=== PATIENT | male | born 1955 | race Caucasian/White ===

== ENCOUNTER 2021-02-20 07:12 | Emergency (ER) | payer OTHER ==
[2021-02-20] MEDS ORDERED: HYDROCODONE/APAP 10/325 TAB ONE (08:24)
[2021-02-20] MEDS ORDERED: ONDANSETRON 4 MG (ODT) TAB ONE (08:24)
[2021-02-20] MEDS ORDERED: FAMOTIDINE 20 MG TAB ONE (08:25)
[2021-02-20] MEDS ORDERED: TETANUS & DIPHTHERIA TOX,ADULT 0.5 ML VIAL ONE (08:25)
--- NOTE | 2021-02-20 10:11 | ER ---
Nurse's Notes [facility] Name: Rony Mortensen Jr Age: 65 yrs Sex: Male : 1955 Arrival Date: 02/20/2021 Time: 07:16 Bed 12 Private MD: Diagnosis: Fracture of one rib, left side-Rib 5;Chest pain on breathing;Chest pain, unspecified Presentation: 02/20 07:40 Chief complaint: Patient states: tripped over a piece of concrete yesterday and landed iw on his left side, has pain to left ribs. Care prior to arrival: None. 07:40 Acuity: CAMRYN 4 iw 07:40 Method Of Arrival: Ambulatory iw 07:40 Coronavirus screen: At this time, the client does not indicate any symptoms associated iw with coronavirus-19. Ebola Screen: Patient negative for fever greater than or equal to 101.5 degrees Fahrenheit, and additional compatible Ebola Virus Disease symptoms Patient denies exposure to infectious person. Patient denies travel to an Ebola-affected area in the 21 days before illness onset. No symptoms or risks identified at this time. Initial Sepsis Screen: Does the patient meet any 2 criteria? No. Patient's initial sepsis screen is negative. Does the patient have a suspected source of infection? No. Patient's initial sepsis screen is negative. Risk Assessment: Do you want to hurt yourself or someone else? Patient reports no desire to harm self or others. Onset of symptoms was February 19, 2021. Historical: - Allergies: 07:41 No Known Allergies; iw - Home Meds: 07:41 suboxone [Active]; Pepcid Oral [Active]; iw - PMHx: 07:41 Hypertensive disorder; Hypercholesterolemia; Chronic pain; iw - Immunization history:: Client reports receiving the 2nd dose of the Covid vaccine. - Social history:: Smoking status: . Screenin:30 Abuse screen: Denies threats or abuse. Denies injuries from another. Nutritional iw screening: No deficits noted. Tuberculosis screening: No symptoms or risk factors identified. Fall Risk None identified. Assessment: 08:30 General: Appears in no apparent distress. Behavior is calm, cooperative. Pain: iw Complains of pain in chest and left lateral anterior chest. Neuro: Level of Consciousness is awake, alert, obeys commands, Oriented to person, place, time, situation. Vital Signs: 07:40 BP 147 / 96; Pulse 92; Resp 18; Temp 98.5; Pulse Ox 98% on R/A; Weight 97.52 kg; Height iw 5 ft. 11 in. (180.34 cm); 07:40 Body Mass Index 29.99 (97.52 kg, 180.34 cm) iw ED Course: 07:16 Patient arrived in ED. mr 07:40 Triage completed. iw 07:44 Regine Trivedi, RN is Primary Nurse. iw 07:50 Jairon Dawson MD is Attending Physician. kdr 08:30 Patient has correct armband on for positive identification. iw 09:50 CXR XRAY In Process Unspecified. EDMS 09:50 Ribs Left XRAY In Process Unspecified. EDMS 10:30 No provider procedures requiring assistance completed. iw 10:30 Patient did not have IV access during this emergency room visit. iw Administered Medications: 08:29 Drug: [place] (HYDROcodone-acetaminophen) 10 mg-325 mg 1 tabs Route: PO; iw 08:40 Follow up: Response: No adverse reaction iw 08:29 Drug: Zofran (Ondansetron) 4 mg Route: PO; iw 08:40 Follow up: Response: No adverse reaction iw 08:29 Drug: Pepcid (famotidine) 20 mg Route: PO; iw 08:40 Follow up: Response: No adverse reaction iw 08:29 Drug: Tetanus-Diphtheria Toxoid Adult 0.5 ml {Financial Aid Coordinator: [employer]. Exp: iw 06/18/2022. Lot #: [id number]. } Route: IM; Site: right deltoid; 08:40 Follow up: Response: No adverse reaction iw Outcome: 10:10 Discharge ordered by . kdr 10:30 Discharged to home ambulatory. iw 10:30 Condition: good 10:31 Patient left the ED. jh5 Signatures: Dispatcher [employer] EDMS Jairon Dawson MD MD [facility] [place] Regine Trivedi, RN DORA Kenya Chavez RN RN 5 Corrections: (The following items were deleted from the chart) 12:24 12:00 No provider procedures requiring assistance completed. iw iw
--- NOTE | 2021-02-20 10:11 | EDPHYS ---
[facility] Name: Rony Mortensen Jr Age: 65 yrs Sex: Male : 1955 Arrival Date: 02/20/2021 Time: 07:16 Bed 12 Private MD: ED Physician Jairon Dawson HPI: 02/20 08:04 This 65 yrs old Male presents to ER via Ambulatory with complaints of Fall Injury, Rib kdr Pain. 08:04 Details of fall: The patient fell from an upright position, while walking. Onset: The kdr symptoms/episode began/occurred suddenly, yesterday. Associated injuries: The patient sustained injury to the chest, specifically the left lateral anterior chest. Severity of symptoms: At their worst the symptoms were mild, moderate, just prior to arrival, in the emergency department the symptoms are unchanged. The patient has not experienced similar symptoms in the past. The patient has not recently seen a physician. States he was walking across his yard yesterday when he fell on his left side. He immediately had left chest wall pain. He also has an abrasion on his elbow. He did not hit his head and there was no loss of consciousness. Historical: - Allergies: 07:41 No Known Allergies; iw - Home Meds: 07:41 suboxone [Active]; Pepcid Oral [Active]; iw - PMHx: 07:41 Hypertensive disorder; Hypercholesterolemia; Chronic pain; iw - Immunization history:: Client reports receiving the 2nd dose of the Covid vaccine. - Social history:: Smoking status: . ROS: 08:04 Constitutional: Negative for fever, chills, and weight loss, Eyes: Negative for injury, kdr pain, redness, and discharge, ENT: Negative for injury, pain, and discharge, Neck: Negative for injury, pain, and swelling, Respiratory: Negative for shortness of breath, cough, wheezing, and pleuritic chest pain, Abdomen/GI: Negative for abdominal pain, nausea, vomiting, diarrhea, and constipation, Back: Negative for injury and pain, : Negative for injury, bleeding, discharge, and swelling, MS/Extremity: Negative for injury and deformity, Neuro: Negative for headache, weakness, numbness, tingling, and seizure activity. Psych: Negative for depression, anxiety, suicide ideation, homicidal ideation, and hallucinations, Allergy/Immunology: Negative for hives, rash, and allergies, Endocrine: Negative for neck swelling, polydipsia, polyuria, polyphagia, and marked weight changes, Hematologic/Lymphatic: Negative for swollen nodes, abnormal bleeding, and unusual bruising. 08:04 Cardiovascular: Positive for chest pain, with cough, with movement, of the left lateral anterior chest, Negative for edema, orthopnea, palpitations, paroxysmal nocturnal dyspnea. Exam: 08:04 Constitutional: This is a well developed, well nourished patient who is awake, alert, kdr and in no acute distress. Head/Face: Normocephalic, atraumatic. Eyes: Pupils equal round and reactive to light, extra-ocular motions intact. Lids and lashes normal. Conjunctiva and sclera are non-icteric and not injected. Cornea within normal limits. Periorbital areas with no swelling, redness, or edema. Neck: Trachea midline, no thyromegaly or masses palpated, and no cervical lymphadenopathy. Supple, full range of motion without nuchal rigidity, or vertebral point tenderness. No Meningismus. Cardiovascular: Regular rate and rhythm with a normal S1 and S2. No gallops, murmurs, or rubs. Normal PMI, no JVD. No pulse deficits. Respiratory: Lungs have equal breath sounds bilaterally, clear to auscultation and percussion. No rales, rhonchi or wheezes noted. No increased work of breathing, no retractions or nasal flaring. Abdomen/GI: Soft, non-tender, with normal bowel sounds. No distension or tympany. No guarding or rebound. No evidence of tenderness throughout. Back: No spinal tenderness. No costovertebral tenderness. Full range of motion. Skin: Warm, dry with normal turgor. Normal color with no rashes, no lesions, and no evidence of cellulitis. MS/ Extremity: Pulses equal, no cyanosis. Neurovascular intact. Full, normal range of motion. Neuro: Awake and alert, GCS 15, oriented to person, place, time, and situation. Cranial nerves II-XII grossly intact. Motor strength 5/5 in all extremities. Sensory grossly intact. Cerebellar exam normal. Normal gait. Psych: Awake, alert, with orientation to person, place and time. Behavior, mood, and affect are within normal limits. 08:04 Abdomen/GI: No left upper quadrant pain on deep palpation. Vital Signs: 07:40 BP 147 / 96; Pulse 92; Resp 18; Temp 98.5; Pulse Ox 98% on R/A; Weight 97.52 kg; Height iw 5 ft. 11 in. (180.34 cm); 07:40 Body Mass Index 29.99 (97.52 kg, 180.34 cm) iw MDM: 10:10 Patient medically screened. kdr 13:23 Data reviewed: vital signs, nurses notes, lab test result(s), radiologic studies. kdr Counseling: I had a detailed discussion with the patient and/or guardian regarding: the historical points, exam findings, and any diagnostic results supporting the discharge/admit diagnosis, radiology results, the need for outpatient follow up. 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 Exp: 06/18/2022. Lot #: [id number]. } Route: IM; Site: right deltoid; 08:40 Follow up: Response: No adverse reaction iw Disposition Summary: 02/20/21 10:10 Discharge Ordered Location: Home kdr Problem: new kdr Symptoms: have improved kdr Condition: Stable kdr Diagnosis - Fracture of one rib, left side - Rib 5 kdr - Chest pain on breathing kdr - Chest pain, unspecified kdr Followup: kdr - With: Private Physician - When: 2 - 3 days - Reason: If symptoms return, Further diagnostic work-up, Recheck today's complaints, Continuance of care, Re-evaluation by your physician Discharge Instructions: - Discharge Summary Sheet kdr - Chest Wall Pain kdr - Rib Fracture, [id number] kdr Forms: - Medication Reconciliation Form kdr - Thank You Letter kdr - Prescription Opioid Use kdr Prescriptions: - Cyclobenzaprine 10 mg Oral Tablet - take 1 tablet by ORAL route every 8 hours As needed; 15 tablet; Refills: 0, kdr Product Selection Permitted - Tramadol 50 mg Oral Tablet - take 1 tablet by ORAL route every 8 hours as needed; 20 tablet; Refills: 0, kdr Product Selection Permitted Signatures: Dispatcher [employer] Jairon Mitchell MD MD kdr Williams, Irene, RN RN iw
[2021-02-20 10:34] VITALS: BP 147/96; TEMP 98.5; O2SAT 98
--- NOTE | 2021-02-20 11:42 | RAD REPORT ---
EXAM DESCRIPTION: RAD - Chest Single View - 02/20/2021 9:50 am CLINICAL HISTORY: Fall, left rib pain;Chest pain Chest pain. COMPARISON: Chest Pa And Lat (2 Views) dated 02/27/2020; Chest Pa And Lat (2 Views) dated 07/31/2019; Chest Pa And Lat (2 Views) dated 10/12/2015; CHEST SINGLE VIEW dated 11/27/2014 FINDINGS: Portable technique limits examination quality. The lungs are grossly clear. The heart is normal in size. IMPRESSION: No acute intrathoracic process suspected.
--- NOTE | 2021-02-20 11:45 | RAD REPORT ---
EXAM DESCRIPTION: RAD - Ribs Left - 02/20/2021 9:50 am CLINICAL HISTORY: Fall, left rib pain COMPARISON: Chest Single View dated 02/20/2021 FINDINGS: Subtle lucency is seen in the left lateral sixth rib suspicious for a nondisplaced fractur e. No pneumothorax.
== END 2021-02-20 10:31 | disposition home or self-care (01) ==
LOC: ER 07:12
DX: S22.42XA Multiple fractures of ribs, left side, initial encounter for closed fracture (principal); R07.1 Chest pain on breathing; W01.0XXA Fall on same level from slipping, tripping and stumbling without subsequent striking against object, initial encounter; Y93.9 Activity, unspecified; Y92.9 Unspecified place or not applicable
CPT/HCPCS: 71045; 90471; 90714; 99283